=== PATIENT | male | born 2000 | race Two or more races ===

== ENCOUNTER 2023-05-26 15:23 | Emergency (ER) | payer OTHER ==
[~2023-05-26] VITALS: Ht 172.7 cm; Wt 69.4 kg
[2023-05-26 18:40] VITALS: BP 115/66; PULSE 71; RESP 18; TEMP 98.9; O2SAT 97
[2023-05-26] MEDS ORDERED: NAPR-1334 PO (18:43)
== END 2023-05-26 18:41 | disposition home or self-care (01) ==
LOC: ER 15:23
DX: S06.0X1A Concussion with loss of consciousness of 30 minutes or less, initial encounter (principal); S40.011A Contusion of right shoulder, initial encounter; F17.210 Nicotine dependence, cigarettes, uncomplicated; F12.10 Cannabis abuse, uncomplicated; W01.0XXA Fall on same level from slipping, tripping and stumbling without subsequent striking against object, initial encounter; Y93.23 Activity, snow (alpine) (downhill) skiing, snowboarding, sledding, tobogganing and snow tubing; Y92.89 Other specified places as the place of occurrence of the external cause; Y99.8 Other external cause status
CPT/HCPCS: 70450; 72125; 73030